=== PATIENT | female | born 1975 | race Caucasian/White ===

== ENCOUNTER 2022-03-09 21:23 | Emergency (ER) | payer SELFPAY ==
[~2022-03-09] VITALS: Ht 165.1 cm; Wt 61.2 kg
[2022-03-09 21:25] VITALS: BP_SYST 110
[2022-03-10 01:21] VITALS: BP_SYST 110
== END 2022-03-10 01:20 | disposition left against medical advice (07) ==
LOC: SED 21:23
DX: G40.909 Epilepsy, unspecified, not intractable, without status epilepticus (principal); Z59.00 Homelessness unspecified; Z76.5 Malingerer [conscious simulation]
CPT/HCPCS: 99283